=== PATIENT | female | born 1960 | race Caucasian/White ===

== ENCOUNTER 2018-05-11 12:12 | Emergency (ER) | payer BC, OTHER ==
[~2018-05-11] VITALS: Ht 172.7 cm; Wt 99.8 kg
[2018-05-11] MEDS ORDERED: cefTRIAXone W LIDOCAINE 1 GM IM IM ONE (15:30)
[2018-05-11] MEDS ORDERED: cefTRIAXone SOD 1,000 MG VL ONE (15:31)
[2018-05-11] MEDS ORDERED: KETOROLAC TROMETH 60MG/2ML VIAL IM ONE ×2 (15:36→15:45)
[2018-05-11 15:51] VITALS: BP 137/82
== END 2018-05-11 16:32 | disposition home or self-care (01) ==
LOC: ER 12:14
DX: L03.211 Cellulitis of face (principal); J32.9 Chronic sinusitis, unspecified; J45.909 Unspecified asthma, uncomplicated; Z88.8 Allergy status to other drugs, medicaments and biological substances
CPT/HCPCS: 70486; 96372; 99284; J0696; J1885